=== PATIENT | female | born 1950 | race Caucasian/White ===

== ENCOUNTER 2024-02-06 08:13 | Emergency (ER) | payer OTHER ==
[2024-02-06 08:24] VITALS: BP 147/81; PULSE 84; RESP 18; TEMP 97.7; BMI 23.1
[2024-02-06 09:38] LABS: BASO % 1.3 % (0-2.0); EOS % 19.9 % (0-4.5); HEMATOCRIT 37.5 % (32.4-45.2); HEMOGLOBIN 12.5 GM/dL (10.7-15.3); LYMPH % 17.6 % (8-40); MCHC 33.4 g/dl (32.0-36.0); MEAN CELL VOLUME 89.8 fl (80-96); MEAN PLT VOLUME 7.5 fl (7.5-11.1); MONO % 8.6 % (3.8-10.2); NEUT % 52.6 % (42.8-82.8); PLATELET COUNT 185 10^3/uL (134-434); RBC 4.18 M/mm3 (3.60-5.2); RDW 13.6 % (11.6-15.6); WHITE BLOOD COUNT 6.7 K/mm3 (4.0-10.0)
[2024-02-06 10:04] LABS: ALBUMIN 4.1 g/dl (3.4-5.0); BLOOD UREA NITROGEN 20.5 mg/dL (7-18); CALCIUM 9.9 mg/dL (8.5-10.1); MAGNESIUM 2.1 mg/dL (1.8-2.4)
[2024-02-06 10:09] LABS: BILIRUBIN,TOTAL 0.3 mg/dL (0.2-1); TOT PROT 8.3 g/dl (6.4-8.2)
== END 2024-02-06 11:18 | disposition home or self-care (01) ==
LOC: JER 08:13
DX: R09.82 Postnasal drip (principal); R05.9 Cough, unspecified; R07.9 Chest pain, unspecified; Z20.822 Contact with and (suspected) exposure to COVID-19
CPT/HCPCS: 0241U-QW; 36415; 71046-TC-FY; 80053; 83735; 85025; 93005; 93010; 99285-25